=== PATIENT | female | born 2000 | race Caucasian/White ===

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

== ENCOUNTER 2020-06-21 19:49 | Emergency (ER) | payer OTHER ==
[2020-06-21 20:07] VITALS: RESP 18
[2020-06-21] MEDS ORDERED: SODIUM CHLORIDE 0.9% 1,000 ML IV ONE (20:18)
[2020-06-21] MEDS ORDERED: METOCLOPRAMIDE 5 MG/ML 2 ML VIAL IVP STA (20:18)
[2020-06-21] MEDS ORDERED: diphenhydrAMINE 50 MG/ML 1 ML VIAL IVP STA (20:18)
[2020-06-21] MEDS ORDERED: KETOROLAC 15 MG/ML 1 ML VIAL IVP STA (20:18)
--- NOTE | 2020-06-21 21:12 | ED ---
Headache HPI - General Chief Complaint: Headache Stated Complaint: Head pain Time Seen by Provider: 06/21/20 20:08 Mode of arrival: ambulatory Limitations: no limitations - History of Present Illness Initial Comments: 19 year-old female patient for evaluation of left sided headache. States it started with waking this morning. She did take a norco without relief. She reports sensitivity to light and sound. Denies nausea or vomiting. Denies any numbness, tingling, or weakness to her extremities. Denies recent head injury. Reports headaches 1-2 times per week over the last couple of years. Had has scans in the past at an outside hospital. His any new symptoms with this headache. Denies chance of . Denies fever, chills, neck stiffness. - Related Data Allergies Allergy/AdvReac Type Severity Reaction Status Date / Time No Known Allergies Allergy Verified 06/21/20 20:59 Review of Systems ROS Statement: Those systems with pertinent positive or pertinent negative responses have been documented in the HPI. ROS Other: All systems not noted in ROS Statement are negative. Past Medical History Past Medical History: No Reported History History of Any Multi-Drug Resistant Organisms: None Reported Past Surgical History: No Surgical Hx Reported Past Psychological History: No Psychological Hx Reported Smoking Status: Never smoker Past Alcohol Use History: None Reported Past Drug Use History: None Reported General Exam Limitations: no limitations General appearance: alert, in no apparent distress, other (Physical well- developed, well-nourished adult female patient in no acute distress. Vital signs upon presentation are temperature 98.4F, pulse 70, respirations 18, blood pressure 128/95, pulse ox 100% on room air.) Eye exam: Present: normal appearance, PERRL, EOMI. Absent: scleral icterus, conjunctival injection, periorbital swelling ENT exam: Present: normal exam, normal oropharynx, mucous membranes moist Respiratory exam: Present: normal lung sounds bilaterally. Absent: respiratory distress, wheezes, rales, rhonchi, stridor Cardiovascular Exam: Present: regular rate, normal rhythm, normal heart sounds. Absent: systolic murmur, diastolic murmur, rubs, gallop, clicks Neurological exam: Present: alert, oriented X3, CN II-XII intact Expanded Speech: Present: fluid speech Cranial nerves: EOM's Intact: Normal, Nystagmus: Normal Motor strength exam: RUE: 5, LUE: 5, RLE: 5, LLE: 5 Psychiatric exam: Present: normal affect, normal mood Skin exam: Present: warm, dry, intact, normal color. Absent: rash Course Vital Signs 06/21/20 06/21/20 20:04 21:27 Temperature 98.4 F 98.2 F Pulse Rate 70 71 Respiratory 18 18 Rate Blood Pressure 128/95 132/72 O2 Sat by Pulse 100 100 Oximetry Medical Decision Making - Medical Decision Making 19-year-old female patient presented to the emergency department today for evaluation of left-sided headache. Physical examination is unremarkable. She is neurologically intact with no focal deficits. She was given IV fluids and pain medication. Upon reevaluation reports improvement in symptoms. Discharged HER primary care physician. She is urged to discuss possible follow-up with neurology or MRI. Return parameters were discussed in detail. She verbalizes u nderstanding and agrees with this plan. My attending is Dr. Gallo. Disposition Clinical Impression: Headache Disposition: HOME SELF-CARE Condition: Good Instructions (If sedation given, give patient instructions): Acute Headache (ED) Additional Instructions: Follow up with the primary care physician for recheck in 1-2 days. Discuss MRI or referral to neurology due to frequent headaches. Return for any new, worsening, or concerning symptoms. Is patient prescribed a controlled substance at d/c from ED?: No Referrals: None,Stated [Primary Care Provider] - 1-2 days Time of Disposition: 21:11
[2020-06-21 21:28] VITALS: BP 132/72; PULSE 71; TEMP 98.2
== END 2020-06-21 21:27 | disposition home or self-care (01) ==
LOC: EC 19:49
DX: R51.9 Headache, unspecified (principal)
CPT/HCPCS: 99283; 96374; 96375 ×2; 96361; J1200; J2765; J1885

== ENCOUNTER → 2022-05-21 | Outpatient (CLI) | payer OTHER ==
--- NOTE | 2022-05-21 16:11 | MR ---
EXAMINATION TYPE: MR brain wo con DATE OF EXAM: 05/21/2022 3:14 PM COMPARISON: NONE HISTORY: Seizures. Multiplanar and multispin-echo imaging of the brain was performed . The ventricles, basal cisterns and sulci overlying the cerebral convexities are within normal limits. There is no evidence for midline shift or mass effect. Acute intracranial hemorrhage or extra-axial collection is not evident. The brain parenchyma reveals no abnormal increased signal. No acute edema is identified. The paranasal sinuses and mastoid air cells are well-aerated. IMPRESSION: Unremarkable MRI of the brain.
== END | disposition home or self-care (01) ==
LOC: RADMRIMAIN 14:39
PROVIDERS: ATTEND Psychiatry & Neurology Neurology
DX: G40.009 Localization-related (focal) (partial) idiopathic epilepsy and epileptic syndromes with seizures of localized onset, not intractable, without status epilepticus (principal)
CPT/HCPCS: 70551

== ENCOUNTER 2023-05-08 10:05 | Emergency (ER) | payer SELFPAY ==
--- NOTE | 2023-05-08 12:04 | ED ---
General Adult HPI - General Chief complaint: Chest Pain Stated complaint: CHEST PAIN Time Seen by Provider: 05/08/23 11:12 Source: patient, family Mode of arrival: wheelchair Limitations: no limitations - History of Present Illness Initial comments: 22-year-old female presents to the emergency department for evaluation of chest and anterior neck discomfort. Patient states that this started around 4 or 5 AM. She notes the pain is in her chest and into her anterior neck. She states that last night she had been drinking heavily. She reports that she has been vomiting but is unsure if the vomiting started before or after the pain. Denies fever, chills, shortness of breath, hematemesis. She has a history of epilepsy and takes Vimpat 150mg BID but has not had this last night or this morning. - Related Data Previous Rx's Medication Instructions Recorded Omeprazole [PriLOSEC] 20 mg PO AC-BRKFST #14 cap 05/08/23 Allergies Allergy/AdvReac Type Severity Reaction Status Date / Time sulfamethoxazole Allergy Rash/Hives Verified 05/08/23 10:42 [From Bactrim] trimethoprim [From Bactrim] Allergy Rash/Hives Verified 05/08/23 10:42 Review of Systems ROS Statement: Those systems with pertinent positive or pertinent negative responses have been documented in the HPI. ROS Other: All systems not noted in ROS Statement are negative. Past Medical History Past Medical History: Seizure Disorder History of Any Multi-Drug Resistant Organisms: None Reported Past Surgical History: No Surgical Hx Reported Past Psychological History: No Psychological Hx Reported Smoking Status: Vaper Past Alcohol Use History: Heavy Past Drug Use History: Marijuana General Exam Limitations: no limitations General appearance: alert, in no apparent distress Head exam: Present: atraumatic, normocephalic, normal inspection Eye exam: Present: normal appearance, PERRL, EOMI. Absent: scleral icterus, conjunctival injection, periorbital swelling ENT exam: Present: normal exam, mucous membranes moist Neck exam: Present: normal inspection. Absent: tenderness, meningismus, lymphadenopathy Respiratory exam: Present: normal lung sounds bilaterally. Absent: respiratory distress, wheezes, rales, rhonchi, stridor Cardiovascular Exam: Present: regular rate, normal rhythm, normal heart sounds. Absent: systolic murmur, diastolic murmur, rubs, gallop, clicks GI/Abdominal exam: Present: soft, normal bowel sounds. Absent: distended, tenderness, guarding, rebound, rigid Extremities exam: Present: normal inspection, full ROM, normal capillary refill. Absent: tenderness, pedal edema, joint swelling, calf tenderness Back exam: Present: normal inspection Neurological exam: Present: alert, oriented X3 Psychiatric exam: Present: normal affect, normal mood Skin exam: Present: warm, dry, intact, normal color. Absent: rash Course Vital Signs 05/08/23 05/08/23 05/08/23 10:35 12:31 14:11 Temperature 97.6 F 99.3 F Pulse Rate 74 55 L 76 Respiratory 18 20 20 Rate Blood Pressure 146/96 146/104 117/93 O2 Sat by Pulse 100 100 98 Oximetry Medical Decision Making - Medical Decision Making Was pt. sent in by a medical professional or institution (, PA, WIRE SAW OPERATOR, urgent care, hospital, or longterm...) When possible be specific @ -No Did you speak to anyone other than the patient for history (EMS, parent, family, police, friend...)? What history was obtained from this source @ -No Did you review nursing and triage notes (agree or disagree)? Why? @ -I reviewed and agree with nursing and triage notes Were old charts reviewed (outside hosp., previous admission, EMS record, old EKG, old radiological studies, urgent care reports/EKG's, longterm records)? Report findings @ -No old charts were reviewed Differential Diagnosis (chest pain, altered mental status, abdominal pain women, abdominal pain men, vaginal bleeding, weakness, fever, dyspnea, syncope, headache, dizziness, GI bleed, back pain, seizure, CVA, palpatations, mental health, musculoskeletal)? @ -Differential Chest Pain: Stable Angina, Unstable Angina, STEMI, NSTEMI Aortic Dissection, Pneumothorax, Musculoskeletal, Esophageal Spasm GERD, Cholecystitis, Pancreatitis, Zoster, this is not meant to be an all-inclusive list. EKG interpreted by me (3pts min.). @ -EKG at 1106 shows sinus rhythm with sinus arrhythmia, significant artifact present rate 65, W[place] 196, QRS 78, QT/QTc 422/433 X-rays interpreted by me (1pt min.). @ -Chest x-ray shows no acute process CT interpreted by me (1pt min.). @ -None done U/S interpreted by me (1pt. min.). @ -None done What testing was considered but not performed or refused? (CT, X-rays, U/S, labs)? Why? @ -None What meds were considered but not given or refused? Why? @ -None Did you discuss the management of the patient with other professionals (professionals i.e. DrMarcin, PA, WIRE SAW OPERATOR, lab, RT, psych nurse, social sciences professor, engraver pantograph, teacher, special assets officer, rn case manager hospice)? Give summary @ -No Was smoking cessation discussed for >3mins.? @ -No Was critical care preformed (if so, how long)? @ -No Were there social determinants of health that impacted care today? How? (Homelessness, low income, unemployed, alcoholism, drug addiction, transportation, low edu. Level, literacy, decrease access to med. care, group home, re hab)? @ -No Was there de-escalation of care discussed even if they declined (Discuss DNR or withdrawal of care, Hospice)? DNR status @ -No What co-morbidities impacted this encounter? (DM, HTN, Smoking, COPD, CAD, Cancer, CVA, ARF, Chemo, Hep., AIDS, mental health diagnosis, sleep apnea, morbid obesity)? @ -None Was patient admitted / discharged? Hospital course, mention meds given and route, prescriptions, significant lab abnormalities, going to OR and other pertinent info. @ -Discharged. Patient presented to the emergency department for evaluation of chest pain, neck pain. Patient states that she had a negative heavy drinking last night relates that the pain started around 5 AM of morning. She does note nausea and vomiting although unsure if this started before or after the pain. Laboratory studies obtained including CBC, CMP.CBC shows WBC of 12.6, hemoglobin 16.4, likely slight hemoconcentration due to dehydration from vomiting. CMP essentially unremarkable, negative troponin. Chest x-ray shows no acute process. Patient patient was given 1 L of normal saline in the emergency department along with a dose of Tylenol and Zofran. She states that she is feeling much better after this. She states that the pain has resolved. Prescription written for omeprazole x 14 days. Tricked return precautions were discussed. Patient is understanding and agreeable with this plan. Patient stable at time of discharge. Case discussed with Dr. Singh Undiagnosed new problem with uncertain prognosis? @ -No Drug Therapy requiring intensive monitoring for toxicity (Heparin, Nitro, Insulin, Cardizem)? @ -No Were any procedures done? @ -No Diagnosis/symptom? @ -Chest pain, vomiting Acute, or Chronic, or Acute on Chronic? @ -Acute Uncomplicated (without systemic symptoms) or Complicated (systemic symptoms)? @ -uncomplicated Side effects of treatment? @ -No Exacerbation, Progression, or Severe Exacerbation? @ -No Poses a threat to life or bodily function? How? (Chest pain, [place], [place], pneumonia, PE, COPD, DKA, ARF, appy, cholecystitis, CVA, Diverticulitis, Homicidal, Suicidal, threat to staff... and all critical care pts) @ -No - Lab Data Result diagrams: 05/08/23 12:19 05/08/23 12:19 Lab Results 05/08/23 05/08/23 05/08/23 Range/Units 12:19 12:19 12:19 WBC 12.6 H (3.8-10.6) k/uL RBC 5.16 (3.80-5.40) m/uL Hgb 16.4 H (11.4-16.0) gm/dL Hct 48.0 H (34.0-46.0) % MCV 93.0 (80.0-100.0) fL MCH 31.8 (25.0-35.0) pg MCHC 34.2 (31.0-37.0) g/dL RDW 12.9 (11.5-15.5) % Plt Count 268 (150-450) k/uL MPV 9.0 Neutrophils % 86 % Lymphocytes % 10 % Monocytes % 2 % Eosinophils % 0 % Basophils % 0 % Neutrophils # 10.8 H (1.3-7.7) k/uL Lymphocytes # 1.3 (1.0-4.8) k/uL Monocytes # 0.3 (0-1.0) k/uL Eosinophils # 0.0 (0-0.7) k/uL Basophils # 0.0 (0-0.2) k/uL PT 11.4 (10.0-12.5) sec INR 1.1 (<1.2) APTT 21.5 L (22.0-30.0) sec Sodium 140 (137-145) mmol/L Potassium 3.8 (3.5-5.1) mmol/L Chloride 107 (98-107) mmol/L Carbon Dioxide 19 L (22-30) mmol/L Anion Gap 14 mmol/L BUN 10 (7-17) mg/dL Creatinine 0.60 (0.52-1.04) mg/dL Est GFR (CKD-EPI)AfAm >90 (>60 ml/min/1.73 sqM) Est GFR (CKD-EPI)NonAf >90 (>60 ml/min/1.73 sqM) Glucose 127 H (74-99) mg/dL Calcium 10.2 (8.4-10.2) mg/dL Magnesium 1.6 (1.6-2.3) mg/dL Total Bilirubin 0.7 (0.2-1.3) mg/dL AST 39 H (14-36) U/L ALT 27 (4-34) U/L Alkaline Phosphatase 78 (38-126) U/L Troponin I (0.000-0.034) ng/mL Total Protein 8.5 H (6.3-8.2) g/dL Albumin 5.2 H (3.5-5.0) g/dL Amylase 84 (30-110) U/L Lipase 49 (23-300) U/L 05/08/23 Range/Units 12:19 WBC (3.8-10.6) k/uL RBC (3.80-5.40) m/uL Hgb (11.4-16.0) gm/dL Hct (34.0-46.0) % MCV (80.0-100.0) fL MCH (25.0-35.0) pg MCHC (31.0-37.0) g/dL RDW (11.5-15.5) % Plt Count (150-450) k/uL MPV Neutrophils % % Lymphocytes % % Monocytes % % Eosinophils % % Basophils % % Neutrophils # (1.3-7.7) k/uL Lymphocytes # (1.0-4.8) k/uL Monocytes # (0-1.0) k/uL Eosinophils # (0-0.7) k/uL Basophils # (0-0.2) k/uL PT (10.0-12.5) sec INR (<1.2) APTT (22.0-30.0) sec Sodium (137-145) mmol/L Potassium (3.5-5.1) mmol/L Chloride (98-107) mmol/L Carbon Dioxide (22-30) mmol/L Anion Gap mmol/L BUN (7-17) mg/dL Creatinine (0.52-1.04) mg/dL Est GFR (CKD-EPI)AfAm (>60 ml/min/1.73 sqM) Est GFR (CKD-EPI)NonAf (>60 ml/min/1.73 sqM) Glucose (74-99) mg/dL Calcium (8.4-10.2) mg/dL Magnesium (1.6-2.3) mg/dL Total Bilirubin (0.2-1.3) mg/dL AST (14-36) U/L ALT (4-34) U/L Alkaline Phosphatase (38-126) U/L Troponin I <0.012 (0.000-0.034) ng/mL Total Protein (6.3-8.2) g/dL Albumin (3.5-5.0) g/dL Amylase (30-110) U/L Lipase (23-300) U/L Disposition Clinical Impression: Nonspecific chest pain, GERD (gastroesophageal reflux disease) Disposition: HOME SELF-CARE Condition: Stable Instructions (If sedation given, give patient instructions): Chest Pain (ED), Esophagitis (ED) Additional Instructions: Please follow up with your primary care provider. Return to the emergency department for new or worsening symptoms. Prescriptions: Omeprazole [PriLOSEC] 20 mg PO -BRKFST #14 cap Is patient prescribed a controlled substance at d/c from ED?: No Referrals: Paris Lainez MD [Primary Care Provider] - 1-2 days
[2023-05-08] MEDS: SODIUM CHLORIDE 0.9% 1,000 ML IV STA (12:24)
[2023-05-08] MEDS: ONDANSETRON 4 MG/2 ML VIAL IVP STA (12:25)
[2023-05-08] MEDS: LACOSAMIDE 50 MG TABLET PO STA (12:26)
[2023-05-08 12:27] LABS: Basophils % (A) 0 %; Eosinophils % (A) 0 %; HGB 16.4 gm/dL (11.4-16.0); Lymphocytes # (A) 1.3 k/uL (1.0-4.8); Lymphocytes % (A) 10 %; MCH 31.8 pg (25.0-35.0); MCHC 34.2 g/dL (31.0-37.0); Monocytes # (A) 0.3 k/uL (0-1.0); Monocytes % (A) 2 %; Neutrophils # (A) 10.8 k/uL (1.3-7.7); Neutrophils % (A) 86 %; Platelet Count 268 k/uL (150-450); RBC 5.16 m/uL (3.80-5.40); RDW 12.9 % (11.5-15.5); WBC 12.6 k/uL (3.8-10.6)
[2023-05-08] MEDS: ACETAMINOPHEN TAB 500 MG TAB PO STA (12:27)
[2023-05-08 12:42] LABS: ALT 27 U/L (4-34); AST 39 U/L (14-36); African American GFR (CKD) >90 (>60 ml/min/1.73 sqM); Albumin 5.2 g/dL (3.5-5.0); Alkaline Phosphatase 78 U/L (38-126); Amylase 84 U/L (30-110); Anion Gap 14 mmol/L; Blood Urea Nitrogen 10 mg/dL (7-17); Calcium 10.2 mg/dL (8.4-10.2); Carbon Dioxide 19 mmol/L (22-30); Chloride 107 mmol/L (98-107); Glucose 127 mg/dL (74-99); Lipase 49 U/L (23-300); Magnesium 1.6 mg/dL (1.6-2.3); Non-African American GFR(CKD) >90 (>60 ml/min/1.73 sqM); Potassium 3.8 mmol/L (3.5-5.1); Sodium 140 mmol/L (137-145); Total Bilirubin 0.7 mg/dL (0.2-1.3); Total Protein 8.5 g/dL (6.3-8.2)
--- NOTE | 2023-05-08 12:43 | XR ---
EXAMINATION TYPE: XR chest 2V DATE OF EXAM: 05/08/2023 COMPARISON: NONE HISTORY: Chest pain TECHNIQUE: Frontal and lateral views of the chest are obtained. FINDINGS: There is no focal air space opacity, pleural effusion, or pneumothorax seen. The cardiac silhouette size is within normal limits. The osseous structures are intact. IMPRESSION: No acute cardiopulmonary process.
[2023-05-08 12:49] LABS: INR 1.1 (<1.2); Prothrombin Time 11.4 sec (10.0-12.5)
[2023-05-08 12:52] VITALS: RESP 20
[2023-05-08 13:00] LABS: Partial Thromboplastin Time 21.5 sec (22.0-30.0)
[2023-05-08 14:33] VITALS: BP 117/93; PULSE 76; TEMP 99.3
== END 2023-05-08 14:13 | disposition home or self-care (01) ==
LOC: EC 10:05
DX: R07.89 Other chest pain (principal); K21.9 Gastro-esophageal reflux disease without esophagitis; F17.290 Nicotine dependence, other tobacco product, uncomplicated; Z88.2 Allergy status to sulfonamides; Z88.1 Allergy status to other antibiotic agents
CPT/HCPCS: 36415; 80053; 82150; 83690; 83735; 84484; 85025; 85610; 85730; 71046; 99285; 96374; 96361; J2405

== ENCOUNTER 2024-01-16 09:22 | Emergency (ER) | payer OTHER ==
[2024-01-16 09:27] VITALS: RESP 18; TEMP 98.4
--- NOTE | 2024-01-16 09:47 | ED ---
General Adult HPI - General Chief complaint: GI Bleed Stated complaint: ABD pain Time Seen by Provider: 01/16/24 09:25 Source: patient, RN notes reviewed, old records reviewed Mode of arrival: ambulatory Limitations: no limitations - History of Present Illness Initial comments: This is a 23-year-old female who presents to the emergency department compla ining that she has rectal bleeding. Patient states started today and has been 3 times. Patient states has been bright red blood. Patient states yesterday she had diarrhea but no blood and today when she got up she had only blood. Patient denies any rectal pain. Patient states she has had no history of hemorrhoids. Patient denies any blood thinners. Patient states she has some lower abdominal discomfort but no real significant pain. Patient Nuys any fever chills. - Related Data Previous Rx's Medication Instructions Recorded Omeprazole [PriLOSEC] 20 mg PO AC-BRKFST #14 cap 05/08/23 Allergies Allergy/AdvReac Type Severity Reaction Status Date / Time sulfamethoxazole Allergy Rash/Hives Verified 01/16/24 09:24 [From Bactrim] trimethoprim [From Bactrim] Allergy Rash/Hives Verified 01/16/24 09:24 Review of Systems ROS Statement: Those systems with pertinent positive or pertinent negative responses have been documented in the HPI. ROS Other: All systems not noted in ROS Statement are negative. Past Medical History Past Medical History: Seizure Disorder History of Any Multi-Drug Resistant Organisms: None Reported Past Surgical History: No Surgical Hx Reported Past Psychological History: No Psychological Hx Reported Smoking Status: Vaper Past Alcohol Use History: Heavy Past Drug Use History: Marijuana General Exam - General Exam Comments Initial Comments: GENERAL: Patient is well-developed and well-nourished. Patient is nontoxic and well- hydrated and is in mild distress. ENT: Neck is soft and supple. No significant lymphadenopathy is noted. Oropharynx is clear. Moist mucous membranes. Neck has full range of motion without eliciting any pain. EYES: The sclera were anicteric and conjunctiva were pink and moist. Extraocular movements were intact and pupils were equal round and reactive to light. Eyelids were unremarkable. PULMONARY: Unlabored respirations. Good breath sounds bilaterally. No audible rales rhonchi or wheezing was noted. CARDIOVASCULAR: There is a regular rate and rhythm without any murmurs gallops or rubs. ABDOMEN: Soft and nontender with normal bowel sounds. RECTAL: On rectal exam there was no hemorrhoids and no fistula and no source of bleeding could be seen SKIN: Skin is clear with no lesions or rashes and otherwise unremarkable. NEUROLOGIC: Patient is alert and oriented x3. Cranial nerves II through XII are grossly intact. Motor and sensory are also intact. Normal speech, volume and content. Symmetrical smile. MUSCULOSKELETAL: Normal extremities with adequate strength and full range of motion. LYMPHATICS: No significant lymphadenopathy is noted PSYCHIATRIC: Normal psychiatric evaluation. Limitations: no limitations Course Vital Signs 01/16/24 09:24 Temperature 98.4 F Pulse Rate 63 Respiratory 18 Rate Blood Pressure 140/91 O2 Sat by Pulse 100 Oximetry Medical Decision Making - Medical Decision Making Was pt. sent in by a medical professional or institution (, [facility], CLIENT SERVICE EXECUTIVE, urgent care, hospital, or half-way...) When possible be specific @ -No Did you speak to anyone other than the patient for history (EMS, parent, family, police, friend...)? What history was obtained from this source @ -No Did you review nursing and triage notes (agree or disagree)? Why? @ -I reviewed and agree with nursing and triage notes Were old charts reviewed (outside hosp., previous admission, EMS record, old EKG, old radiological studies, urgent care reports/EKG's, half-way records)? Report findings @ -No old charts were reviewed Differential Diagnosis? @ -Differential GI Bleed: Esophageal varices, aortoenteric fistula, Danielle-Jarrell, gastritis, peptic ulcer disease, diverticulosis, inflammatory bowel disease, hemorrhoids, fissure, colitis, malignancy, Meckel's diverticulum, this is not meant to be an all- inclusive list. EKG interpreted by me (3pts min.). @ -As above X-rays interpreted by me (1pt min.). @ -None done CT interpreted by me (1pt min.). @ -None done U/S interpreted by me (1pt. min.). @ -None done What testing was considered but not performed or refused? (CT, X-rays, U/S, labs)? Why? @ -None What meds were considered but not given or refused? Why? @ -None Did you discuss the management of the patient with other professionals (professionals i.e. , PA, CLIENT SERVICE EXECUTIVE, lab, RT, psych nurse, social media director, caramel coloring operator, teacher, forestry technical officer, field nurse case manager)? Give summary @ -No Was smoking cessation discussed for >3mins.? @ -No Was critical care preformed (if so, how long)? @ -No Were there social determinants of health that impacted care today? How? (Homelessness, low income, unemployed, alcoholism, drug addiction, transportatio n, low edu. Level, literacy, decrease access to med. care, penitentiary, rehab)? @ -No Was there de-escalation of care discussed even if they declined (Discuss DNR or withdrawal of care, Hospice)? DNR status @ -No What co-morbidities impacted this encounter? (DM, HTN, Smoking, COPD, CAD, Cancer, CVA, ARF, Chemo, Hep., AIDS, mental health diagnosis, sleep apnea, morbid obesity)? @ -None Was patient admitted / discharged? Hospital course, mention meds given and route, prescriptions, significant lab abnormalities, going to OR and other pertinent info. @ -Hemoglobin is within normal range. Patient had a bowel movement here in the emergency department with only minimal blood. Patient still has a little discomfort in the lower abdomen but nothing significant and no point tenderness. Undiagnosed new problem with uncertain prognosis? @ -No Drug Therapy requiring intensive monitoring for toxicity (Heparin, Nitro, Insulin, Cardizem)? @ -No Were any procedures done? @ -No Diagnosis/symptom? @ -Rectal bleeding Acute, or Chronic, or Acute on Chronic? @ -Acute Uncomplicated (without systemic symptoms) or Complicated (systemic symptoms)? @ -Complicated Side effects of treatment? @ -No Exacerbation, Progression, or Severe Exacerbation? @ -No Poses a threat to life or bodily function? How? (Chest pain, [place], [place], pneumonia, PE, COPD, DKA, ARF, appy, cholecystitis, CVA, Diverticulitis, Homicidal, Suicid al, threat to staff... and all critical care pts) @ -No - Lab Data Result diagrams: 01/16/24 10:24 01/16/24 10:24 Lab Results 01/16/24 01/16/24 Range/Units 10:24 10:24 WBC 7.4 (3.8-10.6) k/uL RBC 4.69 (3.80-5.40) m/uL Hgb 14.5 (11.4-16.0) gm/dL Hct 42.9 (34.0-46.0) % MCV 91.4 (80.0-100.0) fL MCH 30.9 (25.0-35.0) pg MCHC 33.7 (31.0-37.0) g/dL RDW 12.5 (11.5-15.5) % Plt Count 215 (150-450) k/uL MPV 7.8 Neutrophils % 72 % Lymphocytes % 17 % Monocytes % 6 % Eosinophils % 3 % Basophils % 1 % Neutrophils # 5.3 (1.3-7.7) k/uL Lymphocytes # 1.3 (1.0-4.8) k/uL Monocytes # 0.4 (0-1.0) k/uL Eosinophils # 0.2 (0-0.7) k/uL Basophils # 0.1 (0-0.2) k/uL Sodium 139 (137-145) mmol/L Potassium 4.2 (3.5-5.1) mmol/L Chloride 103 (98-107) mmol/L Carbon Dioxide 29 (22-30) mmol/L Anion Gap 7 mmol/L BUN 11 (7-17) mg/dL Creatinine 0.62 (0.52-1.04) mg/dL Est GFR (CKD-EPI)AfAm >90 (>60 ml/min/1.73 sqM) Est GFR (CKD-EPI)NonAf >90 (>60 ml/min/1.73 sqM) Glucose 107 H (74-99) mg/dL Calcium 9.6 (8.4-10.2) mg/dL Total Bilirubin 0.4 (0.2-1.3) mg/dL AST 24 (14-36) U/L ALT 20 (4-34) U/L Alkaline Phosphatase 50 (38-126) U/L Total Protein 7.1 (6.3-8.2) g/dL Albumin 4.3 (3.5-5.0) g/dL Disposition Clinical Impression: Rectal bleeding Disposition: HOME SELF-CARE Condition: Good Instructions (If sedation given, give patient instructions): Gastrointestinal Bleeding (ED) Additional Instructions: Patient should return to the emergency department if there is any increased bleeding lightheadedness or shortness of breath. Is patient prescribed a controlled substance at d/c from ED?: No Referrals: Paris Lainez MD [Primary Care Provider] - 1-2 days Time of Disposition: 11:15
[2024-01-16 10:30] LABS: Basophils # (A) 0.1 k/uL (0-0.2); Basophils % (A) 1 %; Eosinophils # (A) 0.2 k/uL (0-0.7); Eosinophils % (A) 3 %; HCT 42.9 % (34.0-46.0); HGB 14.5 gm/dL (11.4-16.0); Lymphocytes # (A) 1.3 k/uL (1.0-4.8); Lymphocytes % (A) 17 %; MCH 30.9 pg (25.0-35.0); MCHC 33.7 g/dL (31.0-37.0); MCV 91.4 fL (80.0-100.0); Mean Platelet Volume 7.8; Monocytes # (A) 0.4 k/uL (0-1.0); Monocytes % (A) 6 %; Neutrophils # (A) 5.3 k/uL (1.3-7.7); Neutrophils % (A) 72 %; Platelet Count 215 k/uL (150-450); RBC 4.69 m/uL (3.80-5.40); RDW 12.5 % (11.5-15.5); WBC 7.4 k/uL (3.8-10.6)
[2024-01-16 10:51] LABS: ALT 20 U/L (4-34); AST 24 U/L (14-36); African American GFR (CKD) >90 (>60 ml/min/1.73 sqM); Albumin 4.3 g/dL (3.5-5.0); Alkaline Phosphatase 50 U/L (38-126); Anion Gap 7 mmol/L; Blood Urea Nitrogen 11 mg/dL (7-17); Calcium 9.6 mg/dL (8.4-10.2); Carbon Dioxide 29 mmol/L (22-30); Chloride 103 mmol/L (98-107); Glucose 107 mg/dL (74-99); Non-African American GFR(CKD) >90 (>60 ml/min/1.73 sqM); Potassium 4.2 mmol/L (3.5-5.1); Sodium 139 mmol/L (137-145); Total Bilirubin 0.4 mg/dL (0.2-1.3); Total Protein 7.1 g/dL (6.3-8.2)
[2024-01-16 11:35] VITALS: BP 126/85; PULSE 72
== END 2024-01-16 11:35 | disposition home or self-care (01) ==
LOC: EC 09:22
DX: K62.5 Hemorrhage of anus and rectum (principal); F17.290 Nicotine dependence, other tobacco product, uncomplicated; Z88.2 Allergy status to sulfonamides; Z88.1 Allergy status to other antibiotic agents
CPT/HCPCS: 36415; 80053; 85025; 99285